=== PATIENT | female | born 1970 | race Caucasian/White ===

== ENCOUNTER 2021-02-05 13:17 | Emergency (ER) | payer OTHER ==
[~2021-02-05] VITALS: Ht 157.5 cm; Wt 46.6 kg
--- NOTE | 2021-02-05 13:27 | NUR ---
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 I'M NOT BEING ADMITTED." PT REFUSED WHEELCHAIR.
--- NOTE | 2021-02-05 13:35 | NUR ---
PT CAME TO ED FROM CARDIOLOGY DUE TO FLUID AROUND THE HEART AND RA SPO2 66%. PER THE PT THE CARADIOLOGY DR STATES SHE HAD FLUID AROUND HER HEART. PT STATES SHE HAS BEEN SHORT OF BREATH FOR 6 MONTHS.
[2021-02-05] MEDS ORDERED: SODIUM CHLORIDE FLUSH 10ML SYR IVF ONE ×2 (14:00→15:00)
--- NOTE | 2021-02-05 14:16 | NUR ---
PATIENT REFUSING IV, ERMD NOTIFIED.
--- NOTE | 2021-02-05 15:00 | NUR ---
PT REFUSING IV UNTIL CONFIRMED IF CT CAN BE DONE WITHOUT LAB WORK
[2021-02-05] MEDS ORDERED: LIDOCAINE 1%, 10ML ONE (16:49)
--- NOTE | 2021-02-05 17:07 | NUR ---
PT OFF THE FLOOR TO IR
[2021-02-05 18:25] VITALS: BP 131/78
--- NOTE | 2021-02-05 18:37 | NUR ---
PT REC'VD DISCHARGE INSTRUCTIONS AND EDUCATION. PT HAD NO FURTHER QUESTIONS. PT AMBULATED TO DC AREA, STEADY GAIT.
== END 2021-02-05 18:42 | disposition home or self-care (01) ==
LOC: ED 17:30
DX: J15.9 Unspecified bacterial pneumonia (principal); J90 Pleural effusion, not elsewhere classified; R00.0 Tachycardia, unspecified
CPT/HCPCS: 32555; 71045; 71250; 82150; 82945; 83615; 83986; 84157; 87015; 87070; 87075; 87102; 87116; 87205; 87206; 89051; 93005; 99285; J3490

== ENCOUNTER → 2021-02-05 | Outpatient (CLI) | payer OTHER | END | disposition home or self-care (01) | LOC: CVU 11:34 | PROVIDERS: ATTEND Internal Medicine | DX: R06.02 Shortness of breath (principal); B45.9 Cryptococcosis, unspecified; D72.810 Lymphocytopenia | CPT/HCPCS: 93306; 93356 ==